=== PATIENT | male | born 1970 | race Caucasian/White ===

== ENCOUNTER 2017-03-22 09:41 | Day surgery (SDC) | payer BC ==
[2017-03-15 10:34] VITALS: BMI 35.2
--- NOTE | 2017-03-22 00:14 | HP ---
HISTORY OF PRESENT ILLNESS: Mr. Kerns is a pleasant 46-year-old man who presents for evaluation of 6 plus months for his bilateral upper extremity C7 radiculopathies that he has been receiving injec tions with Dr. Whelan in [place] for. The injections did help a great deal; however, only for aroun d a week at a time for this reason, he was referred to us for surgical discussion. He has an MRI fr om [facility] in [place] that reveals osteophytic changes bilaterally at C6-C7 that would fit hi s symptoms very well. This is also present on the right at C5-C6 with change in the lordotic curvat ure; however, he has no C6 symptoms to speak of. He does report increased difficulty with bare meta l use of the right hand. PAST MEDICAL HISTORY: Significant for chronic neck and back problems. PAST SURGICAL HISTORY: Unspecified. CURRENT MEDICATIONS: Effexor, Xanax, gabapentin and tramadol. ALLERGIES: No known drug allergies. PHYSICAL EXAMINATION: The patient is alert and oriented x3. Gait is normal, no ataxia. Upper extr emity motor exam reveals full 5/5 strength, all the pertinent motor movements except for right upper extremity tricep extension which we graded about a 5-/5. ASSESSMENT: Cervical radiculopathy. PLAN: Discussed C6-C7 radiculopathy with the patient and with Dr. Santana, he then met with the patie nt, reviewed the imaging and ultimately advocated for the same. He explained to the patient the ris ks, benefits, and alternatives to the procedure. The patient expressed understanding and would like to move forward with surgery as discussed. I do believe the patient is mentally competent and capa ble of making medical decisions for himself and we will move forward with surgery as planned. This is Silvio Burton PA-C, dictating under Dr. Santana.
[2017-03-22] MEDS ORDERED: CEFAZOLIN/Water 2 GM/20 ML SYRINGE ONE ×2 (10:40→18:16)
[2017-03-22] MEDS ORDERED: Fentanyl 250 MCG/5 ML VIAL ONE (13:28)
[2017-03-22] MEDS ORDERED: Thrombin 5000 UNITS/5 ML VIAL ONE (13:34)
[2017-03-22] MEDS ORDERED: Glycopyrrolate 0.2 MG/ML 5 ML SYRINGE ONE (13:58)
[2017-03-22] MEDS ORDERED: Propofol 200 MG/20 ML VIAL ONE (13:58)
[2017-03-22] MEDS ORDERED: Lidocaine 1% PF 5 ML VIAL ONE (13:58)
[2017-03-22] MEDS ORDERED: PHENYLEPHRINE-NS 100 MCG/ML 10 ML SYRINGE ONE (13:58)
[2017-03-22] MEDS ORDERED: ePHEDrine/0.9% NaCl/PF SYRINGE 50 mg/10 ml ONE (13:58)
[2017-03-22] MEDS ORDERED: Ondansetron HCl/PF 4 MG/2 ML Vial ONE (13:58)
[2017-03-22] MEDS ORDERED: Meperidine HCl/PF 25 MG/ML VIAL ONE (15:13)
[2017-03-22] MEDS ORDERED: Fentanyl 100 MCG/2 ML VIAL ONE ×3 (15:23→16:53)
--- NOTE | 2017-03-22 17:11 | OP ---
DATE OF OPERATION: 03/22/2017 SURGEON: Rodger Santana M.D. DIRECTOR OF MARKET INTELLIGENCE: Silvio Burton PA-C INDICATION: Pain. DIAGNOSIS: Cervical radiculopathy. PROCEDURE: Anterior cervical discectomy and fusion C6-7. ANESTHESIA: General. TECHNIQUE: The patient was brought into the operating room and placed on general anesthesia. He wa s placed on the table in a supine position. A transverse incision was planned over the lateral aspe ct of the neck on the right. After prepping and draping and after an appropriate operative pause, t he incision was created. The underlying platysma muscle identified and incised. A blunt tissue mac ne anterior to the sternocleidomastoid muscle was used to gain access to the prevertebral space. Se lf-retaining retractors were placed in the wound for optimal exposure. After confirming the appropr iate level, C-arm fluoroscopy, an annulotomy was performed in the C6-7 disk space where all disk mat erial as well as anterior and posterior osteophytes were removed. After complete decompression, a 7 mm lordotic PEEK cage packed with allograft and autograft material was placed within the interbody space. An anterior cervical plate was then fashioned in front of the spine and secured with a total of 4 fixed screws. Midline and lateral structures were inspected and found to be free from signifi cant trauma. The wound was irrigated. Hemostasis was maintained throughout. The wound was then cl osed in anatomic layers and a pressure dressing was applied. There were no known procedural complic ations.
[2017-03-22] MEDS ORDERED: HYDROcodone/Acetaminophen 5/325 mg Tablet ONE (18:48)
== END 2017-03-22 19:07 | disposition home or self-care (01) ==
LOC: SDC 09:41
PROVIDERS: ATTEND Neurological Surgery
PROC: 0RG10A0 Fusion of Cervical Vertebral Joint with Interbody Fusion Device, Anterior Approach, Anterior Column, Open Approach (ICD-10-PCS; principal; 2017-03-22)
DX: M54.12 Radiculopathy, cervical region (principal); M25.78 Osteophyte, vertebrae; Z79.891 Long term (current) use of opiate analgesic; Z79.899 Other long term (current) drug therapy; Z98.890 Other specified postprocedural states
CPT/HCPCS: 76001; 96374; C1713; J1170; J2001; J2175; J2405; J2704; J3010